=== PATIENT | female | born 1990 | race Caucasian/White ===

== ENCOUNTER 2016-03-18 13:11 | Inpatient (IN) | payer OTHER ==
[~2016-03-18] VITALS: Ht 167.6 cm; Wt 89.0 kg
[2016-03-18 13:56] LABS: URINE BLOOD (Dip) POC 1+ (NEGATIVE)
[2016-03-18] MEDS ORDERED: CLINDAMYCIN 300 MG INJ IV ONE (14:00)
[2016-03-18] MEDS ORDERED: CLINDAMYCIN 600 MG/D5W (PMX) 50 ML IVPB SCH (14:01)
[2016-03-18 14:10] LABS: BASOPHILS % 0.4 % (0.0-2.0); EOSINOPHILS % 0.5 % (0.0-7.0); HEMATOCRIT 39.4 % (37.0-47.0); HEMOGLOBIN 13.5 g/dl (12.0-16.0); LYMPHOCYTES # 1.1 10^3/ul (0.8-2.9); LYMPHOCYTES % 13.8 % (15.0-51.0); MEAN CORPUSCULAR HEMOGLOBIN 30.7 pg (29.0-33.0); MEAN CORPUSCULAR HGB CONC 34.3 g/dl (32.0-37.0); MEAN CORPUSCULAR VOLUME 89.5 fl (82.0-101.0); MEAN PLATELET VOLUME 8.8 fl (7.4-10.4); MONOCYTE # 0.6 10^3/ul (0.3-0.9); MONOCYTES % 7.6 % (0.0-11.0); NEUTROPHIL # 6.4 10^3/ul (1.6-7.5); NEUTROPHILS % 77.7 % (39.0-77.0); PLATELET COUNT 239 10^3/UL (140-440); RED CELL DISTRIBUTION WIDTH 12.6 % (11.5-14.5); UNCORRECTED WBC 8.3 10^3/ul (4.8-10.8); WHITE BLOOD COUNT 8.3 10^3/ul (4.8-10.8)
[2016-03-18 14:12] LABS: CONDITION 1
[2016-03-18 14:23] LABS: ALBUMIN 4.5 g/dl (3.3-4.9); POTASSIUM 4.3 mmol/L (3.5-5.1)
[2016-03-18 14:25] LABS: BILIRUBIN,INDIRECT 0.3 mg/dl (0-1.1); BILIRUBIN,TOTAL 0.3 mg/dl (0.2-1.3); CREATININE 0.54 mg/dl (0.44-1.00)
[2016-03-18 14:26] LABS: ALBUMIN/GLOBULIN RATIO 0.95; CALCIUM 9.5 mg/dl (8.4-10.2); TOTAL PROTEIN 9.2 g/dl (6.1-8.1)
[2016-03-18] MEDS ORDERED: CLINDAMYCIN 300 MG INJ IVPB ONE (14:30)
[2016-03-18] MEDS ORDERED: IOHEXOL 300MG/ML 150 ML BTL ONE ×2 (14:50→17:09)
[2016-03-18] MEDS ORDERED: ONDANSETRON 4 MG INJ IV STA (15:12)
[2016-03-18] MEDS ORDERED: morphine 4 MG/ML VIAL IV STA (15:12)
--- NOTE | 2016-03-18 16:17 | ERD ---
ER Documentation Chief Complaint Date/Time DATE: 03/18/16 TIME: 16:13 Chief Complaint LEFT EAR/JAW PAIN X 3 DAYS HPI This is a 26-year-old female who presents to the emergency department today with her father complaining of the left ear pain and jaw pain for the past 5 days. Patient states that 5 days ago she started with an earache and went to see her primary care doctor on Saturday who gave her a prescription for neomycin, Tylenol 3 and Keflex for an ear infection. States that she has had no improvement in symptoms or pain even with antibiotics. She went to an urgent care today who sent here to the emergency department to rule out mastoiditis. Patient denies any fevers or chills at this time. ROS All systems reviewed and are negative except as per history of present illness. Allergies Allergies: Coded Allergies: No Known Allergy (Unverified , 01/22/14) PMhx/Soc History of Surgery: No Anesthesia Reaction: No Hx Neurological Disorder: No Hx Respiratory Disorders: No Hx Cardiac Disorders: No Hx Psychiatric Problems: No Hx Miscellaneous Medical Probl: No Hx Alcohol Use: Yes (OCCASIONAL) Hx Substance Use: No Hx Tobacco Use: No Physical Exam Vitals Vital Signs Date Time Temp Pulse Resp B/P Pulse Ox O2 Delivery O2 Flow Rate FiO2 03/18/16 15:22 98.4 66 20 112/67 100 Room Air 03/18/16 13:13 98.0 81 20 124/73 99 Physical Exam Const: No acute distress Head: Atraumatic Eyes: Normal Conjunctiva ENT: Ears right TM normal. Left TM with purulent drainage and erythema on posterior aspect of ear along mastoid. Tenderness to palpation tragus with localized erythema and swelling.. Neck: Full range of motion..~ No meningismus. Resp: Clear to auscultation bilaterally Cardio: Regular rate and rhythm, no murmurs Abd: Soft, non tender, non distended. Normal bowel sounds Skin: No petechiae or rashes Neur: Awake and alert Psych: Normal Mood and Affect Result Diagram: 03/18/16 1400 03/18/16 1400 Results 24 hrs Laboratory Tests Test 03/18/16 13:56 03/18/16 14:00 Bedside Urine Blood 1+ Bedside Urine Glucose (UA) Negative Bedside Urine Ketones (LAB) Negative Bedside Urine Leukocyte Esterase (L Trace Bedside Urine Nitrite (LAB) Negative Bedside Urine Protein (LAB) 1+ Bedside Urine pH (LAB) 6.0 Alanine Aminotransferase (ALT/SGPT) 248IU/L Albumin 4.5g/dl Albumin/Globulin Ratio 0.95 Alkaline Phosphatase 141IU/L Anion Gap 18 Aspartate Amino Transf (AST/SGOT) 217IU/L Basophils # 0.010^3/ul Basophils % 0.4% Blood Urea Nitrogen 10mg/dl Calcium Level 9.5mg/dl Carbon Dioxide Level 28mmol/L Chloride Level 100mmol/L Creatinine 0.54mg/dl Direct Bilirubin 0.00mg/dl Eosinophils # 0.010^3/ul Eosinophils % 0.5% Globulin 4.70g/dl Glucose Level 97mg/dl Hematocrit 39.4% Hemoglobin 13.5g/dl Indirect Bilirubin 0.3mg/dl Lymphocytes # 1.110^3/ul Lymphocytes % 13.8% Mean Corpuscular Hemoglobin 30.7pg Mean Corpuscular Hemoglobin Concent 34.3g/dl Mean Corpuscular Volume 89.5fl Mean Platelet Volume 8.8fl Monocytes # 0.610^3/ul Monocytes % 7.6% Neutrophils # 6.410^3/ul Neutrophils % 77.7% Nucleated Red Blood Cells # 0.010^3/ul Nucleated Red Blood Cells % 0.0/100WBC Platelet Count 03008^3/UL Potassium Level 4.3mmol/L Red Blood Count 4.4010^6/ul Red Cell Distribution Width 12.6% Sodium Level 142mmol/L Total Bilirubin 0.3mg/dl Total Protein 9.2g/dl White Blood Count 8.310^3/ul Current Medications Medications (Trade) Dose Ordered Sig/Autumn Route PRN Reason Start Time Stop Time Status Last Admin Dose Admin Clindamycin Phosphate (Cleocin) 600 mg ONCE ONCE IV 03/18/16 14:00 03/18/16 14:01 Cancel Clindamycin Phosphate 600 mg 600 mg ONCE ONCE IVPB 03/18/16 14:30 03/18/16 14:31 DC Clindamycin HCl/ Dextrose (Cleocin 600 Mg/ D5W (Pmx)) 50 ml @ 50 mls/hr NOW IVPB 03/18/16 14:01 03/18/16 15:00 DC 03/18/16 14:18 Iohexol (Omnipaque 300mg/ ml) 150 ml STK-MED ONCE .ROUTE 03/18/16 14:50 03/18/16 14:51 DC Ondansetron HCl (Zofran Inj) 4 mg ONCE STAT IV 03/18/16 15:12 03/18/16 15:13 DC 03/18/16 15:17 Morphine Sulfate (morphine) 4 mg ONCE STAT IV 03/18/16 15:12 03/18/16 15:13 DC 03/18/16 15:18 IV Flush 10 ml 10 ml STK-MED ONCE .ROUTE 03/18/16 17:09 03/18/16 17:10 DC Sodium Chloride (NS) 100 ml @ ud STK-MED ONCE .ROUTE 03/18/16 17:09 03/18/16 17:10 DC Iohexol 150 ml 150 ml STK-MED ONCE .ROUTE 03/18/16 17:09 03/18/16 17:10 DC Sodium Chloride (NS) 1,000 ml @ 1,000 mls/hr Q1H ONCE IV 03/18/16 18:00 03/18/16 18:59 DC Ondansetron HCl (Zofran Inj) 4 mg BRIDGE ORDER PRN IV NAUSEA AND/OR VOMITING 03/18/16 18:30 03/18/16 19:17 DC Acetaminophen (Tylenol Tab) 650 mg ER BRIDGE PRN PO MILD PAIN/FEVER 03/18/16 18:30 03/18/16 19:17 DC Morphine Sulfate (morphine) 8 mg ONCE ONCE IV 03/18/16 18:30 03/18/16 18:31 DC 03/18/16 18:29 Diclofenac Sodium (Dyloject) 37.5 mg ONCE STAT IV 03/18/16 18:13 03/18/16 18:16 DC Acetaminophen/ Hydrocodone Bitart ([place] (10/325)) 1 tab ONCE ONCE PO 03/18/16 18:30 03/18/16 18:31 DC IV Flush (NS 3 ml) 3 ml PER PROTOCOL IV 03/18/16 19:00 Ondansetron HCl (Zofran Inj) 4 mg Q6H PRN IV NAUSEA AND/OR VOMITING 03/18/16 19:00 Acetaminophen (Tylenol Tab) 650 mg Q6H PRN PO PAIN LEVEL 1-3 OR FEVER 03/18/16 19:00 Morphine Sulfate (morphine) 2 mg Q4H PRN IV SEVERE PAIN LEVEL 7-10 03/18/16 19:00 Famotidine (Pepcid Iv) 20 mg Q12 IV 03/18/16 21:00 Enoxaparin Sodium 30 mg 30 mg DAILY SC 03/19/16 09:00 Clindamycin HCl/ Dextrose (Cleocin 300 Mg/ D5W (Pmx)) 50 ml @ 100 mls/hr Q6 IVPB 03/19/16 00:00 03/19/16 00:29 DIAGNOSTIC IMAGING REPORT Patient: ARTEM GASPAR : 1990 Age: 26 Sex: F MR #: [id number] DOS: 03/18/16 0000 Ordering MD: RM OTT PA-C Location: [facility] Room/Bed: PROCEDURE: CT head without Contrast CLINICAL INDICATION: Left ear pain, swelling, draining TECHNIQUE: Transaxial images were made through the head on a multi-slice scanner without intravenous contrast. Coronal and sagittal images were subsequently reformatted. One or more of the following dose reduction techniques were used: - Automated exposure control. - Adjustment of the mA and/or kV according to patient size. - Use of iterative reconstruction technique. Radiation dose: CTDIvol = 44.77 mGy; DLP = 720.23 mGy-cm. COMPARISON: None FINDINGS: The calvarium appears intact. There is relative soft tissue swelling about the left external ear with soft tissue density seen in the region of the external auditory canal. There is soft tissue density in the middle ear cavity on the left compatible with otitis media. The there is soft tissue thickening involving multiple left mastoid air cells without osseous destruction. There is partial opacification of a posterior left ethmoid air cell. The ventricles are normal in size and there is no midline shift. No intracranial bleed, mass, or extra-axial fluid collection is identified. There is good alvarez-white matter differentiation. IMPRESSION: 1. There is relatively increased soft tissue density seen about the left external year compatible with inflammation. There is soft tissue density obscuring the left external auditory canal and there is some increased soft tissue density in the left middle ear cavity compatible with otitis media. No discrete abscess cavity is evident. 2. There is a minimal inflammatory change involving left mastoid air cells compatible with early left mastoiditis without osseous destruction identified. 3. Otherwise, Physician Rene Date Time Electronically viewed and signed by Physician Rene on 03/18/2016 16:18 RH/ CC: RM OTT PA-C DIAGNOSTIC IMAGING REPORT Patient: ARTEM GASPAR : 1990 Age: 26 Sex: F MR #: [id number] DOS: 03/18/16 0000 Ordering MD: RM OTT PA-C Location: [facility] Room/Bed: PROCEDURE: CT Maxillofacial with Contrast CLINICAL INDICATION: Left year pain swelling and draining TECHNIQUE: Transaxial images were obtained through the maxillofacial region on a multi-slice scanner following intravenous contrast administration. Sagittal and coronal re-formations were subsequently reconstructed. One or more of the following dose reduction techniques were used: - Automated exposure control. - Adjustment of the mA and/or kV according to patient size. - Use of iterative reconstruction technique. Radiation dose: CTDIvol = 53.91 mGy; DLP = 1132.14 mGy-cm. COMPARISON: No prior studies are available for comparison. FINDINGS: Osseous structures: Appear intact with no fracture or destructive process evident. Paranasal sinuses: There is partial opacification of a left posterior ethmoid air cell. The sphenoid, maxillary, right ethmoid and frontal sinuses are well- aerated. Mastoid air cells: There is normal pneumatization of the right mastoid air cells. There is some fluid within left superior mastoid air cells and there is partial opacification of the left middle ear cavity compatible with otitis media. The air column within the left external auditory canal is obliterated and there is soft tissue swelling about the left external ear. Eachscutum appears normal. Temporomandibular joints: Appear unremarkable. Orbits: The ocular globes, optic nerves, and intraorbital contents appear unremarkable. Soft tissues: Two 7.3 cm in short diameter left jugular digastric nodes are evident. No abscess is identified. IMPRESSION: 1. Soft tissue swelling is seen about the left external year with no abscess identified. 2. Inflammatory change obliterates the air column within the left external auditory canal. 3. There is partial opacification of the left middle ear cavity compatible with otitis media. 4. Fluid is seen within the left superior mastoid air cells compatible with early acute mastoiditis. No osseous destruction is identified. 5. Inflammatory change involving a left posterior ethmoid air cell. 6. Two 7.3 mm in short diameter left jugulodigastric nodes are evident. Physician Rene Date Time Electronically viewed and signed by Physician Rene on 03/18/2016 16:30 RH/ CC: RM OTT PA-C Procedures/MDM This is a 26-year-old female who presents the emergency department today complaining of left ear and jaw pain for the past 5 days. On physical exam patient did have purulent drainage from her left ear and she had some edema and erythema around her tragus as well as erythema on the posterior aspect of her ear along her mastoid. I felt that obtaining laboratory work and imaging was appropriate for the patient given her symptoms and physical exam. Laboratory work shows no elevated white blood cell count. She is not anemic. Platelets are within normal limits. Electrolytes are within normal limits. Creatinine is normal limits. Glucose is within normal limits. Liver function is elevated UA shows trace leukocyte esterase Urine test is negative Head CT with contrast shows relatively increased soft tissue density seen about the left external ear compatible with inflammation. There is soft tissue density obscuring the left external auditory canal and there is some increased soft tissue density in the left middle ear cavity compatible with otitis media. There is no discrete abscess cavity evident. There is minimal inflammatory change involving the left mastoid air cells compatible with early left mastoiditis without osseous destruction identified. Facial bones with contrast shows soft tissue swelling seen about the left external ear with no abscess identified. There is inflammatory change A air column with the left external auditory canal. There is partial opacification of the left middle ear cavity compatible with otitis media. Fluid is seen within the left superior mastoid air cells compatible with early acute mastoiditis. There is no osseous distress may defy. There is inflammatory change involving a left posterior ethmoid air cell. There are 27.3 mm insert diameter left jugulodigastric nodes are evident. I discussed the patient with Dr. Raines and the patient was given 600 mg IV clindamycin as well as morphine for pain. She was also given Zofran. Once CT results were obtained I discussed the patient with Dr. Rogers and there was some discussion as to whether the patient should receive outpatient management versus inpatient management. I did discuss it with the patient and the patient agreed to be admitted for further evaluation and continued IV antibiotic especially considering that her pain was only controlled with morphine here in the emergency department. Patient was also having some difficulty opening her mouth and I had some concern for patient tolerating by mouth intake Any further workup or orders will be placed by either Dr. Guerrero the admitting physician. Departure Diagnosis: Primary Impression: Mastoiditis of left side Condition: RM Brannon PA-C Mar 18, 2016 16:17
--- NOTE | 2016-03-18 16:19 | RADRPT ---
PROCEDURE: CT head without Contrast CLINICAL INDICATION: Left ear pain, swelling, draining TECHNIQUE: Transaxial images were made through the head on a multi-slice scanner without intraveno us contrast. Coronal and sagittal images were subsequently reformatted. One or more of the following dose reduction techniques were used: - Automated exposure control. - Adjustment of the mA and/or kV according to patient size. - Use of iterative reconstruction technique. Radiation dose: CTDIvol = 44.77 mGy; DLP = 720.23 mGy-cm. COMPARISON: None FINDINGS: The calvarium appears intact. There is relative soft tissue swelling about the left external ear wi th soft tissue density seen in the region of the external auditory canal. There is soft tissue dens ity in the middle ear cavity on the left compatible with otitis media. The there is soft tissue thi ckening involving multiple left mastoid air cells without osseous destruction. There is partial opa cification of a posterior left ethmoid air cell. The ventricles are normal in size and there is no midline shift. No intracranial bleed, mass, or extra-axial fluid collection is identified. There is good alvarez-white matter differentiation. IMPRESSION: 1. There is relatively increased soft tissue density seen about the left external year compatible w ith inflammation. There is soft tissue density obscuring the left external auditory canal and there is some increased soft tissue density in the left middle ear cavity compatible with otitis media. N o discrete abscess cavity is evident. 2. There is a minimal inflammatory change involving left mastoid air cells compatible with early le ft mastoiditis without osseous destruction identified. 3. Otherwise, Physician Rene Date Time Electronically viewed and signed by Physician Rene on 03/18/2016 16:18 /
--- NOTE | 2016-03-18 16:31 | RADRPT ---
PROCEDURE: CT Maxillofacial with Contrast CLINICAL INDICATION: Left year pain swelling and draining TECHNIQUE: Transaxial images were obtained through the maxillofacial region on a multi-slice scan er following intravenous contrast administration. Sagittal and coronal re-formations were subsequent ly reconstructed. One or more of the following dose reduction techniques were used: - Automated exposure control. - Adjustment of the mA and/or kV according to patient size. - Use of iterative reconstruction technique. Radiation dose: CTDIvol = 53.91 mGy; DLP = 1132.14 mGy-cm. COMPARISON: No prior studies are available for comparison. FINDINGS: Osseous structures: Appear intact with no fracture or destructive process evident. Paranasal sinuses: There is partial opacification of a left posterior ethmoid air cell. The sphenoi d, maxillary, right ethmoid and frontal sinuses are well-aerated. Mastoid air cells: There is normal pneumatization of the right mastoid air cells. There is some flu id within left superior mastoid air cells and there is partial opacification of the left middle ear cavity compatible with otitis media. The air column within the left external auditory canal is obli terated and there is soft tissue swelling about the left external ear. Eachscutum appears normal. Temporomandibular joints: Appear unremarkable. Orbits: The ocular globes, optic nerves, and intraorbital contents appear unremarkable. Soft tissues: Two 7.3 cm in short diameter left jugular digastric nodes are evident. No abscess is identified. IMPRESSION: 1. Soft tissue swelling is seen about the left external year with no abscess identified. 2. Inflammatory change obliterates the air column within the left external auditory canal. 3. There is partial opacification of the left middle ear cavity compatible with otitis media. 4. Fluid is seen within the left superior mastoid air cells compatible with early acute mastoiditis . No osseous destruction is identified. 5. Inflammatory change involving a left posterior ethmoid air cell. 6. Two 7.3 mm in short diameter left jugulodigastric nodes are evident. Physician Rene Date Time Electronically viewed and signed by Physician Rene on 03/18/2016 16:30 /
[2016-03-18] MEDS ORDERED: SOD CHLORIDE 0.9% 100 ML ONE (17:09)
[2016-03-18] MEDS ORDERED: SOD CHLORIDE 0.9% 1,000 ML IV ONE (18:00)
[2016-03-18] MEDS ORDERED: DICLOFENAC SODIUM 37.5 MG/ML VIAL IV STA (18:13)
[2016-03-18] MEDS ORDERED: ONDANSETRON 4 MG INJ IV PRN ×2 (18:30→19:00)
[2016-03-18] MEDS ORDERED: morphine 10 MG INJ IV ONE (18:30)
[2016-03-18] MEDS ORDERED: HYDROCODONE/APAP (10/325) TAB PO ONE (18:30)
[2016-03-18] MEDS ORDERED: ACETAMINOPHEN 325 MG TAB PO PRN (18:30)
[2016-03-18] MEDS ORDERED: NACL 0.9% 3 ML SYG IV SCH (19:00)
[2016-03-18 20:02] VITALS: TEMP 98.6
[2016-03-18 20:12] VITALS: Ht 167.6 cm; Wt 89.0 kg
[2016-03-18 20:38] VITALS: BP 117/57; RESP 18
[2016-03-18] MEDS: FAMOTIDINE 20 MG INJ IV SCH (20:45)
[2016-03-18] MEDS: morphine 2 MG INJ IV PRN (23:37)
[2016-03-19] MEDS ORDERED: CLINDAMYCIN 300 MG/D5W (PMX) 50 ML IVPB SCH
[2016-03-19] MEDS: morphine 2 MG INJ IV PRN (01:52)
[2016-03-19] MEDS: ACETAMINOPHEN 325 MG TAB PO PRN ×3 (03:03→18:28)
[2016-03-19] MEDS ORDERED: ACET1TAB40 PO (03:24)
[2016-03-19] MEDS ORDERED: CEPH500C PO (03:24)
[2016-03-19] MEDS ORDERED: NPH10OT LEFT EAR (03:24)
[2016-03-19 05:36] LABS: ALBUMIN 4.1 g/dl (3.3-4.9); POTASSIUM 3.9 mmol/L (3.5-5.1)
[2016-03-19 05:38] LABS: ALBUMIN/GLOBULIN RATIO 1.07; BILIRUBIN,INDIRECT 0.2 mg/dl (0-1.1); BILIRUBIN,TOTAL 0.2 mg/dl (0.2-1.3); CREATININE 0.49 mg/dl (0.44-1.00); TOTAL PROTEIN 7.9 g/dl (6.1-8.1)
[2016-03-19 05:39] LABS: CALCIUM 8.9 mg/dl (8.4-10.2)
[2016-03-19 05:40] LABS: BASOPHILS % 0.5 % (0.0-2.0); EOSINOPHILS % 0.3 % (0.0-7.0); HEMOGLOBIN 12.2 g/dl (12.0-16.0); LYMPHOCYTES # 1.6 10^3/ul (0.8-2.9); LYMPHOCYTES % 17.8 % (15.0-51.0); MEAN CORPUSCULAR HEMOGLOBIN 31.2 pg (29.0-33.0); MEAN CORPUSCULAR HGB CONC 34.7 g/dl (32.0-37.0); MEAN CORPUSCULAR VOLUME 89.7 fl (82.0-101.0); MEAN PLATELET VOLUME 8.8 fl (7.4-10.4); MONOCYTE # 0.6 10^3/ul (0.3-0.9); MONOCYTES % 6.9 % (0.0-11.0); NEUTROPHIL # 6.6 10^3/ul (1.6-7.5); NEUTROPHILS % 74.5 % (39.0-77.0); PLATELET COUNT 245 10^3/UL (140-440); RED CELL DISTRIBUTION WIDTH 12.4 % (11.5-14.5); UNCORRECTED WBC 8.8 10^3/ul (4.8-10.8); WHITE BLOOD COUNT 8.8 10^3/ul (4.8-10.8)
[2016-03-19 05:52] LABS: CONDITION 1
[2016-03-19] MEDS ORDERED: morphine 4 MG/ML VIAL IV PRN (06:30)
[2016-03-19 07:42] VITALS: BP 119/60; RESP 16
[2016-03-19] MEDS: CLINDAMYCIN 300 MG/D5W (PMX) 50 ML IVPB SCH ×2 (08:02→12:33)
[2016-03-19] MEDS: FAMOTIDINE 20 MG INJ IV SCH ×2 (08:46→20:04)
[2016-03-19] MEDS: NEOMYC/POLYMYX/HC 10 ML OTIC SUSP LEFT EAR SCH ×3 (08:46→20:04)
[2016-03-19] MEDS: ENOXAPARIN 30 MG/0.3 ML SYG SC SCH (08:50)
[2016-03-19] MEDS ORDERED: NEOMYC/POLYMYX/HC 10 ML OTIC SUSP LEFT EAR SCH (09:00)
--- NOTE | 2016-03-19 14:01 | HP ---
DATE OF ADMISSION: 03/18/2016 CHIEF COMPLAINT: Left ear and left jaw pain, started on Saturday. HISTORY OF PRESENT ILLNESS: The patient is a 26-year-old female who presented to the emergency room with complaints of left ear pain and jaw pain for last 5 days. The patient stated that she started with earache on Saturday and patient went to see her primary doctor on Saturday and was prescribed n eomycin, Tylenol, and Keflex for ear infection. The patient stated that she did not have any improv ement in symptoms. The patient went to urgent care today and was sent to the emergency department. The patient stated that she had a fever at the doctor's office on Saturday, 101.0, then she stated th at she was not taking his temperature at home. The patient underwent a brain CT and face CT, and wa s diagnosed with mastoiditis of the left side. The patient also had some purulent drainage from the left ear. The patient was given morphine for pain and Zofran for nausea. The patient also stated that she has been having nausea since Saturday. The patient was started on IV clindamycin and admitte d for further evaluation and management to medical/surgical floor. PAST MEDICAL HISTORY: The patient denied having any medical problems. PAST SURGICAL HISTORY: Status post cholecystectomy [place] [address] Simmons. FAMILY HISTORY: Noncontributory. SOCIAL HISTORY: The patient lives at home with her family, the patient denies any tobacco use, naya es any illicit drug use. Denies any alcohol use. ALLERGIES: NO KNOWN ALLERGIES. MEDICATIONS: The patient stated she does not take any routine medications. For last 2 days was radha ing neomycin, Tylenol, and Keflex prescribed by PMD. REVIEW OF SYSTEMS: The patient denied any chest pain, denies any shortness of breath. The patient denies any vomiting, denies any diarrhea. Denies leg swelling. A 12-point review of systems is neg ative unless what is mentioned in the HPI. PHYSICAL EXAMINATION: GENERAL: Well-developed, well-nourished female currently awake, alert. VITAL SIGNS: Temperature is 97.8, pulse is 78, blood pressure 116/60, respiratory rate 16, oxygen s aturation is 97% on room air. HEENT: Head is atraumatic, normocephalic. The patient had left auricular swelling and tenderness a nd left jaw tenderness, dried purulent discharge from left ear. Palpable left to left jugular digas tric lymph nodes. NECK: Supple. No cervical lymphadenopathy, no thyromegaly. CHEST: Lungs clear bilaterally. There is no rhonchi, wheezes, or rales noted. CARDIOVASCULAR: Normal S1, S2. No murmurs, gallops, clicks, rubs noted. ABDOMEN: Protuberant, soft, nondistended, nontender. Bowel sounds present. There is no guarding. EXTREMITIES: There is no edema, clubbing, cyanosis. Pulses equal bilaterally 2+. SKIN: There is no rash, petechiae noted. NEUROLOGICAL: The patient is awake, alert, and oriented x4. No focal deficits noted. MUSCULOSKELETAL: Motor strength 5/5 in all extremities. The patient has difficulty in chewing and pain when opening, actually has left jaw tenderness. LABORATORY DATA: On admission, CBC: White blood cells 8.3, hemoglobin 13.5, hematocrit 39.4, plate lets 239. Chemistry: Sodium is 142, potassium 4.3, chloride 100, carbon dioxide 28, anion gap 18, BUN is 10, creatinine 0.54, glucose 97. AST is 217, ALT is 248, alkaline phosphatase 141. IMAGING: Face CT with: 1. Soft tissue swelling is seen about the left external ear with no abscess identified. 2. Inflammatory change obliterates the ear, within the left external auditory canal. 3. There is partial opacification of left middle ear cavity, compatible with otitis media. 4. Fluid is seen within the left superior mastoid air cells compatible with early acute mastoiditis , no osseous destruction is identified. 5. Inflammatory changes involving the left posterior ethmoid air cells. 6. Two 7.3 mm in short diameter left jugular gastric nodes are evident. ASSESSMENT AND PLAN 1. Mastoiditis on the left side. 2. Otitis media, failed outpatient management. I am going to continue the patient on IV clindamycin and continue morphine p.r.n. for pain and Zofra n p.r.n. for nausea. We will ask Dr. Santos to see patient in infectious disease consultation. Victor Hugo l start full liquid mechanical soft diet, advance as patient tolerates. The patient has difficulty chewing due to mastoid tenderness. Will continue Lovenox for deep venous thrombosis prophylaxis and Pepcid for peptic ulcer disease prophylaxis. Further recommendations based on clinical course. Pl an of care discussed with Dr. Menendez. Dictated By: RADHA ACOSTA LIME KILN TENDER for MAGI MENENDEZ MD SR/NTS Conf#: [id number] DID#: [id number]
--- NOTE | 2016-03-19 17:48 | CONS ---
Date/Time of Note Date/Time of Note DATE: 03/19/16 TIME: 17:45 Assessment/Plan Assessment/Plan Additional Assessment/Plan mastoidits R: Vanco mrsa and hiv screen f/u cxs Consultation Date/Type/Reason Admit Date/Time Mar 18, 2016 at 18:10 Reason for Consultation abx recs mastoiditis 24 HR Interval Summary Free Text/Dictation 26 yo female without signiciant pmh admitted with worsening left otitis media and imaging showing mastoiditis. cxs pending. Exam/Review of Systems Vital Signs Vitals Vital Signs Date Time Temp Pulse Resp B/P Pulse Ox O2 Delivery O2 Flow Rate FiO2 03/19/16 07:42 97.8 78 16 119/60 97 03/18/16 20:02 Room Air Intake and Output 03/18/16 03/18/16 03/19/16 15:00 23:00 07:00 Intake Total 490 ml Balance 490 ml Exam Constitutional: alert, oriented, well developed Eyes: EOMI, PERRL, nl conjunctiva, nl lids, nl sclera Respiratory: clear to auscultation, normal air movement Cardiovascular: nl pulses, regular rate and rhythm Gastrointestinal: nl liver, spleen, non-tender, soft Results Result Diagram: 03/19/16 0420 03/19/16 0420 Results 24 hrs Laboratory Tests Test 03/19/16 04:20 Alanine Aminotransferase (ALT/SGPT) 175 H Albumin 4.1 Albumin/Globulin Ratio 1.07 Alkaline Phosphatase 138 H Anion Gap 18 H Aspartate Amino Transf (AST/SGOT) 91 H Basophils # 0.0 Basophils % 0.5 Blood Urea Nitrogen 7 Calcium Level 8.9 Carbon Dioxide Level 26 Chloride Level 99 Creatinine 0.49 Direct Bilirubin 0.00 Eosinophils # 0.0 Eosinophils % 0.3 Globulin 3.80 H Glucose Level 100 Hematocrit 35.0 L Hemoglobin 12.2 Indirect Bilirubin 0.2 Lymphocytes # 1.6 Lymphocytes % 17.8 Mean Corpuscular Hemoglobin 31.2 Mean Corpuscular Hemoglobin Concent 34.7 Mean Corpuscular Volume 89.7 Mean Platelet Volume 8.8 Monocytes # 0.6 Monocytes % 6.9 Neutrophils # 6.6 Neutrophils % 74.5 Nucleated Red Blood Cells # 0.0 Nucleated Red Blood Cells % 0.0 Platelet Count 245 Potassium Level 3.9 Red Blood Count 3.90 L Red Cell Distribution Width 12.4 Sodium Level 139 Total Bilirubin 0.2 Total Protein 7.9 # White Blood Count 8.8 Medications Medications Current Medications Ondansetron HCl (Zofran Inj) 4 mg Q6H PRN IV NAUSEA AND/OR VOMITING Last administered on 03/18/16 23:37; Admin Dose 4 MG; Start 03/18/16 at 19:00 Acetaminophen (Tylenol Tab) 650 mg Q6H PRN PO PAIN LEVEL 1-3 OR FEVER Last administered on 03/19/16 11:59; Admin Dose 650 MG; Start 03/18/16 at 19:00 Morphine Sulfate (morphine) 2 mg Q4H PRN IV SEVERE PAIN LEVEL 7-10 Last administered on 03/19/16 01:52; Admin Dose 2 MG; Start 03/18/16 at 19:00 Famotidine (Pepcid Iv) 20 mg Q12 IV Last administered on 03/19/16 08:46; Admin Dose 20 MG; Start 03/18/16 at 21:00 Enoxaparin Sodium 30 mg 30 mg DAILY SC Last administered on 03/19/16 08:50; Admin Dose 30 MG; Start 03/19/16 at 09:00 Clindamycin HCl/ Dextrose (Cleocin 300 Mg/ D5W (Pmx)) 50 ml @ 100 mls/hr Q6 IVPB Last administered on 03/19/16 12:33; Admin Dose 100 MLS/HR; Start at 06:30 Morphine Sulfate (morphine) 4 mg Q4H PRN IV PAIN; Start 03/19/16 at 06:30 Neomycin/ Polymyxin/ Hydrocortisone (Cortisporin Otic Susp) 4 drop TID LEFT EAR Last administered on 03/19/16 12:33; Admin Dose 4 DROP; Start 03/19/16 at 09: 00 ANEESH SCHULTE MD Mar 19, 2016 17:48
[2016-03-19] MEDS ORDERED: VANCOMYCIN IV PER PHARMACY XX SCH (18:00)
[2016-03-19 19:46] VITALS: BP 114/62; RESP 19
[2016-03-19 20:00] VITALS: BP 114/62; PULSE 78; RESP 19
[2016-03-19] MEDS ORDERED: VANCOMYCIN 1.75 GM in NS 500 ML IVPB SCH (20:00)
[2016-03-19] MEDS ORDERED: KETOROLAC 30 MG INJ IV PRN (20:00)
[2016-03-20 06:25] LABS: CREATININE 0.54 mg/dl (0.44-1.00)
[2016-03-20 06:26] LABS: CALCIUM 9.3 mg/dl (8.4-10.2)
[2016-03-20 06:44] LABS: BASOPHILS % 0.7 % (0.0-2.0); EOSINOPHILS # 0.1 10^3/ul (0.0-0.5); EOSINOPHILS % 1.2 % (0.0-7.0); HEMOGLOBIN 12.3 g/dl (12.0-16.0); LYMPHOCYTES # 1.7 10^3/ul (0.8-2.9); LYMPHOCYTES % 33.6 % (15.0-51.0); MEAN CORPUSCULAR HEMOGLOBIN 31.6 pg (29.0-33.0); MEAN CORPUSCULAR HGB CONC 35.2 g/dl (32.0-37.0); MEAN CORPUSCULAR VOLUME 89.7 fl (82.0-101.0); MONOCYTE # 0.4 10^3/ul (0.3-0.9); NEUTROPHIL # 2.9 10^3/ul (1.6-7.5); NEUTROPHILS % 56.5 % (39.0-77.0); PLATELET COUNT 259 10^3/UL (140-440); RED CELL DISTRIBUTION WIDTH 12.2 % (11.5-14.5); UNCORRECTED WBC 5.1 10^3/ul (4.8-10.8); WHITE BLOOD COUNT 5.1 10^3/ul (4.8-10.8)
[2016-03-20 07:10] LABS: CONDITION 1
[2016-03-20 08:06] VITALS: BP 107/53; RESP 16
[2016-03-20] MEDS: VANCOMYCIN 1 GM in NS 250 ML IVPB SCH ×2 (08:24→15:54)
[2016-03-20] MEDS: NEOMYC/POLYMYX/HC 10 ML OTIC SUSP LEFT EAR SCH ×3 (08:24→21:20)
[2016-03-20] MEDS: ENOXAPARIN 30 MG/0.3 ML SYG SC SCH (08:25)
[2016-03-20] MEDS: FAMOTIDINE 20 MG INJ IV SCH ×2 (08:25→21:26)
[2016-03-20] MEDS ORDERED: VANCOMYCIN 1 GM in NS 250 ML IVPB SCH (10:00)
--- NOTE | 2016-03-20 11:26 | CONS ---
Date/Time of Note Date/Time of Note DATE: 03/20/16 TIME: 11:18 Assessment/Plan Assessment/Plan Chief Complaint/Hosp Course Assessment/Impression: - acute mastoidits - left otitis media - transaminitis - improving Recommendations: - Continue Vanco (03/19/16-) - Add Levaquin for GNR infection - F/u Left ear cultures (prelim growing scant GNR) - F/u mrsa screen (pending) and hiv screen (negative) - Mgmt d/w nursing staff - Above d/w Dr. Santos Problems: Consultation Date/Type/Reason Admit Date/Time Mar 18, 2016 at 18:10 Initial Consult Date 03/19/2016 Type of Consultation: Infectious Disease Reason for Consultation mastoiditis and otitis media Referring Provider: RADHA ACOSTA 24 HR Interval Summary Free Text/Dictation States left ear and jaw pain has slightly improved but still cannot hear anything from left ear. Had similar left ear infection more than six months ago that resolved with oral abx but had residual drainage. Tolerated soft food earlier with mild nausea but no vomiting. Denies abd pain, diarrhea, dysuria, SOB. Pt asking if she can shower. Exam/Review of Systems Vital Signs Vitals Vital Signs Date Time Temp Pulse Resp B/P Pulse Ox O2 Delivery O2 Flow Rate FiO2 03/20/16 08:06 98.8 59 16 107/53 97 03/19/16 20:00 Room Air Intake and Output 03/19/16 03/19/16 03/20/16 15:00 23:00 07:00 Intake Total 100 ml 720 ml 1100 ml Balance 100 ml 720 ml 1100 ml Exam Constitutional: alert, oriented, well developed Head: atraumatic, normocephalic Eyes: PERRL, nl sclera ENMT: mucosa pink and moist, nl lips & teeth, other (Left tragus TTP), tympanic membranes (Left TM with purulent drainage completely covering opening of ear canal) Neck: supple, No jvd Respiratory: clear to auscultation, normal air movement Cardiovascular: nl pulses, regular rate and rhythm Gastrointestinal: bowel sounds, non-tender, soft Musculoskeletal: nl extremities to inspection Extremities: normal pulses, No edema Neurological: nl mental status, nl strength Skin: nl turgor Results Result Diagram: 03/20/16 0507 03/20/16 0507 Results 24 hrs 03/19/2016 Rapid influenza screen INFLUENZA A & B BY EIA Final INFLU A&B BY EIA INFLUENZA A NEGATIVE (Ref Range Neg) INFLUENZA B NEGATIVE (Ref Range Neg) 03/19/2016 MRSA screen MRSA SCREEN Preliminary Screening in process 03/19/2016 Left Ear culture EAR CULTURE Preliminary Organism 1 GRAM NEGATIVE AFIA QUANTITY SCANT GROWTH Laboratory Tests Test 03/19/16 17:55 03/20/16 05:07 HIV (1&2) Antibody NEGATIVE Anion Gap 16 Basophils # 0.0 Basophils % 0.7 Blood Urea Nitrogen 8 Calcium Level 9.3 Carbon Dioxide Level 28 Chloride Level 103 Creatinine 0.54 Eosinophils # 0.1 Eosinophils % 1.2 Glucose Level 88 Hematocrit 35.0 L Hemoglobin 12.3 Lymphocytes # 1.7 Lymphocytes % 33.6 Mean Corpuscular Hemoglobin 31.6 Mean Corpuscular Hemoglobin Concent 35.2 Mean Corpuscular Volume 89.7 Mean Platelet Volume 9.0 Monocytes # 0.4 Monocytes % 8.0 Neutrophils # 2.9 Neutrophils % 56.5 Nucleated Red Blood Cells # 0.0 Nucleated Red Blood Cells % 0.0 Platelet Count 259 Potassium Level 4.0 Red Blood Count 3.90 L Red Cell Distribution Width 12.2 Sodium Level 143 White Blood Count 5.1 # Medications Medications Current Medications Ondansetron HCl (Zofran Inj) 4 mg Q6H PRN IV NAUSEA AND/OR VOMITING Last administered on 03/18/16 23:37; Admin Dose 4 MG; Start 03/18/16 at 19:00 Acetaminophen (Tylenol Tab) 650 mg Q6H PRN PO PAIN LEVEL 1-3 OR FEVER Last administered on 03/19/16 18:28; Admin Dose 650 MG; Start 03/18/16 at 19:00 Morphine Sulfate (morphine) 2 mg Q4H PRN IV SEVERE PAIN LEVEL 7-10 Last administered on 03/19/16 01:52; Admin Dose 2 MG; Start 03/18/16 at 19:00 Famotidine (Pepcid Iv) 20 mg Q12 IV Last administered on 03/20/16 08:25; Admin Dose 20 MG; Start 03/18/16 at 21:00 Enoxaparin Sodium (Lovenox) 30 mg DAILY SC Last administered on 03/20/16 08:25 ; Admin Dose 30 MG; Start 03/19/16 at 09:00 Morphine Sulfate (morphine) 4 mg Q4H PRN IV PAIN; Start 03/19/16 at 06:30 Neomycin/ Polymyxin/ Hydrocortisone 4 drop 4 drop TID LEFT EAR Last administered on 03/20/16 08:24; Admin Dose 4 DROP; Start 03/19/16 at 09:00 Vancomycin HCl (Vancocin) 250 ml @ 125 mls/hr Q8H IVPB Last administered on 08:24; Admin Dose 125 MLS/HR; Start 03/20/16 at 08:00 Ketorolac Tromethamine (Toradol) 30 mg Q6H PRN IV PAIN Last administered on 23:31; Admin Dose 30 MG; Start 03/19/16 at 20:00; Stop 03/22/16 at 19:59 Miscellaneous Information (*Rx Drug Level Order Reminder*) VANCO TROUGH @ 2, 300 ON... ONCE ONCE XX ; Start 03/20/16 at 23:00; Stop 03/20/16 at 23:[address] Brain 03/18/16: 1. There is relatively increased soft tissue density seen about the left external year compatible with inflammation. There is soft tissue density obscuring the left external auditory canal and there is some increased soft tissue density in the left middle ear cavity compatible with otitis media. No discrete abscess cavity is evident. 2. There is a minimal inflammatory change involving left mastoid air cells compatible with early left mastoiditis without osseous destruction identified. 3. Otherwise, CT Face 03/18/16: 1. Soft tissue swelling is seen about the left external ear with no abscess identified. 2. Inflammatory change obliterates the air column within the left external auditory canal. 3. There is partial opacification of the left middle ear cavity compatible with otitis media. 4. Fluid is seen within the left superior mastoid air cells compatible with early acute mastoiditis. No osseous destruction is identified. 5. Inflammatory change involving a left posterior ethmoid air cell. 6. Two 7.3 mm in short diameter left jugulodigastric nodes are evident. BEATA ALEXANDRA NP Mar 20, 2016 11:26
[2016-03-20] MEDS ORDERED: DIPHENHYDRAMINE 25 MG CAP PO PRN (12:00)
[2016-03-20] MEDS: ACETAMINOPHEN 325 MG TAB PO PRN (14:32)
[2016-03-20] MEDS: LEVOFLOXACIN 750MG/D5W (PMX) 150 ML IVPB SCH (14:32)
--- NOTE | 2016-03-20 17:01 | PN ---
Date/Time of Note Date/Time of Note DATE: 03/20/16 TIME: 16:57 Assessment/Plan VTE Prophylaxis VTE Prophylaxis Intervention: SCD's Lines/Catheters IV Catheter Type (from [facility]): Saline Lock Assessment/Plan Chief Complaint/Hosp Course ASSESSMENT AND PLAN 1. Mastoiditis on the left side. Continue vancomycin and Levaquin. Dr. Santos is following an infection disease consultation. 2. Otitis media, failed outpatient management. Further recommendations based on clinical course. Plan of care discussed with Dr. Braswell. Problems: Subjective 24 Hr Interval Summary Free Text/Dictation Patient stated states that she feels better, decrease in jar tenderness, stated that she will be able to eat regular diet. Exam/Review of Systems Vital Signs Vitals Vital Signs Date Time Temp Pulse Resp B/P Pulse Ox O2 Delivery O2 Flow Rate FiO2 03/20/16 08:06 98.8 59 16 107/53 97 03/19/16 20:00 Room Air Intake and Output 03/19/16 03/19/16 03/20/16 15:00 23:00 07:00 Intake Total 100 ml 720 ml 1100 ml Balance 100 ml 720 ml 1100 ml Exam GENERAL: Well-developed, well-nourished female currently awake, alert. HEENT: Head is atraumatic, normocephalic. The patient had left auricular swelling and tenderness and left jaw tenderness, dried purulent discharge from left ear. Palpable left to left jugular digastric lymph nodes. NECK: Supple. CHEST: Lungs clear bilaterally. There is no rhonchi, wheezes, or rales noted. CARDIOVASCULAR: Normal S1, S2. No murmurs, gallops, clicks, rubs noted. ABDOMEN: Protuberant, soft, nondistended, nontender. Bowel sounds present. There is no guarding. EXTREMITIES: There is no edema, clubbing, cyanosis. Pulses equal bilaterally 2 +. SKIN: There is no rash, petechiae noted. NEUROLOGICAL: The patient is awake, alert, and oriented x4. Results Result Diagram: 03/20/16 0507 03/20/16 0507 Results 24 hrs Laboratory Tests Test 03/19/16 17:55 03/20/16 05:07 HIV (1&2) Antibody NEGATIVE Anion Gap 16 Basophils # 0.0 Basophils % 0.7 Blood Urea Nitrogen 8 Calcium Level 9.3 Carbon Dioxide Level 28 Chloride Level 103 Creatinine 0.54 Eosinophils # 0.1 Eosinophils % 1.2 Glucose Level 88 Hematocrit 35.0 L Hemoglobin 12.3 Lymphocytes # 1.7 Lymphocytes % 33.6 Mean Corpuscular Hemoglobin 31.6 Mean Corpuscular Hemoglobin Concent 35.2 Mean Corpuscular Volume 89.7 Mean Platelet Volume 9.0 Monocytes # 0.4 Monocytes % 8.0 Neutrophils # 2.9 Neutrophils % 56.5 Nucleated Red Blood Cells # 0.0 Nucleated Red Blood Cells % 0.0 Platelet Count 259 Potassium Level 4.0 Red Blood Count 3.90 L Red Cell Distribution Width 12.2 Sodium Level 143 White Blood Count 5.1 # Medications Medications Current Medications Ondansetron HCl (Zofran Inj) 4 mg Q6H PRN IV NAUSEA AND/OR VOMITING Last administered on 03/18/16 23:37; Admin Dose 4 MG; Start 03/18/16 at 19:00 Acetaminophen (Tylenol Tab) 650 mg Q6H PRN PO PAIN LEVEL 1-3 OR FEVER Last administered on 03/20/16 14:32; Admin Dose 650 MG; Start 03/18/16 at 19:00 Morphine Sulfate (morphine) 2 mg Q4H PRN IV SEVERE PAIN LEVEL 7-10 Last administered on 03/19/16 01:52; Admin Dose 2 MG; Start 03/18/16 at 19:00 Famotidine (Pepcid Iv) 20 mg Q12 IV Last administered on 03/20/16 08:25; Admin Dose 20 MG; Start 03/18/16 at 21:00 Enoxaparin Sodium (Lovenox) 30 mg DAILY SC Last administered on 03/20/16 08:25 ; Admin Dose 30 MG; Start 03/19/16 at 09:00 Morphine Sulfate (morphine) 4 mg Q4H PRN IV PAIN; Start 03/19/16 at 06:30 Neomycin/ Polymyxin/ Hydrocortisone 4 drop 4 drop TID LEFT EAR Last administered on 03/20/16 14:32; Admin Dose 4 DROP; Start 03/19/16 at 09:00 Vancomycin HCl (Vancocin) 250 ml @ 125 mls/hr Q8H IVPB Last administered on 15:54; Admin Dose 125 MLS/HR; Start 03/20/16 at 08:00 Ketorolac Tromethamine (Toradol) 30 mg Q6H PRN IV PAIN Last administered on 23:31; Admin Dose 30 MG; Start 03/19/16 at 20:00; Stop 03/22/16 at 19:59 Miscellaneous Information (*Rx Drug Level Order Reminder*) VANCO TROUGH @ 2, 300 ON... ONCE ONCE XX ; Start 03/20/16 at 23:00; Stop 03/20/16 at 23:01 Diphenhydramine HCl 25 mg 25 mg Q6H PRN PO ITCHING Last administered on 12:17; Admin Dose 25 MG; Start 03/20/16 at 12:00 Levofloxacin/ Dextrose (Levaquin 750 Mg/ D5W 150 ml (Pmx)) 150 ml @ 100 mls/hr Q24H IVPB Last administered on 03/20/16 14:32; Admin Dose 100 MLS/HR; Start at 14:30 RADHA ACOSTA Mar 20, 2016 17:00
[2016-03-20 20:00] VITALS: BP 117/70; RESP 18
[2016-03-21] MEDS: VANCOMYCIN 1.25 GM in SOD CHLORIDE 0.9% 250 ML IVPB SCH ×2 (00:48→08:28)
[2016-03-21] MEDS: ACETAMINOPHEN 325 MG TAB PO PRN (04:59)
[2016-03-21 07:44] VITALS: BP 115/60; RESP 18
[2016-03-21] MEDS: NEOMYC/POLYMYX/HC 10 ML OTIC SUSP LEFT EAR SCH ×2 (08:28→12:20)
[2016-03-21] MEDS: FAMOTIDINE 20 MG INJ IV SCH (08:28)
[2016-03-21] MEDS: ENOXAPARIN 30 MG/0.3 ML SYG SC SCH (08:29)
--- NOTE | 2016-03-21 10:11 | CONS ---
Date/Time of Note Date/Time of Note DATE: 03/21/16 TIME: 10:10 Assessment/Plan Assessment/Plan Chief Complaint/Hosp Course - acute mastoidits - left otitis media - transaminitis - improving Recommendations: - cont. Levaquin for GNR infection - F/u Left ear cultures (prelim growing scant GNR)--called micro--> - Mgmt d/w nursing staff Problems: Consultation Date/Type/Reason Admit Date/Time Mar 18, 2016 at 18:10 Type of Consultation: Infectious Disease Referring Provider: RADHA ACOSTA 24 HR Interval Summary Free Text/Dictation feeling better Exam/Review of Systems Vital Signs Vitals Vital Signs Date Time Temp Pulse Resp B/P Pulse Ox O2 Delivery O2 Flow Rate FiO2 03/21/16 07:44 98.4 63 18 115/60 99 03/19/16 20:00 Room Air Intake and Output 03/20/16 03/20/16 03/21/16 15:00 23:00 07:00 Intake Total 350 ml 585 ml 610 ml Balance 350 ml 585 ml 610 ml Exam Constitutional: alert, oriented, other (less pain on left ear), well developed Psych: nl mood/affect, no complaints Head: atraumatic, normocephalic Eyes: EOMI, PERRL, nl conjunctiva, nl lids, nl sclera Respiratory: clear to auscultation, normal air movement Cardiovascular: nl pulses, regular rate and rhythm Results Result Diagram: 03/20/16 0507 03/20/16 0507 Results 24 hrs Laboratory Tests Test 03/20/16 22:59 Vancomycin Level Trough 9.2 L Medications Medications Current Medications Ondansetron HCl (Zofran Inj) 4 mg Q6H PRN IV NAUSEA AND/OR VOMITING Last administered on 03/18/16 23:37; Admin Dose 4 MG; Start 03/18/16 at 19:00 Acetaminophen (Tylenol Tab) 650 mg Q6H PRN PO PAIN LEVEL 1-3 OR FEVER Last administered on 03/21/16 04:59; Admin Dose 650 MG; Start 03/18/16 at 19:00 Morphine Sulfate (morphine) 2 mg Q4H PRN IV SEVERE PAIN LEVEL 7-10 Last administered on 03/19/16 01:52; Admin Dose 2 MG; Start 03/18/16 at 19:00 Famotidine (Pepcid Iv) 20 mg Q12 IV Last administered on 03/21/16 08:28; Admin Dose 20 MG; Start 03/18/16 at 21:00 Enoxaparin Sodium (Lovenox) 30 mg DAILY SC Last administered on 03/21/16 08:29 ; Admin Dose 30 MG; Start 03/19/16 at 09:00 Morphine Sulfate (morphine) 4 mg Q4H PRN IV PAIN; Start 03/19/16 at 06:30 Neomycin/ Polymyxin/ Hydrocortisone (Cortisporin Otic Susp) 4 drop TID LEFT EAR Last administered on 03/21/16 08:28; Admin Dose 4 DROP; Start 03/19/16 at 09: 00 Ketorolac Tromethamine (Toradol) 30 mg Q6H PRN IV PAIN Last administered on 23:31; Admin Dose 30 MG; Start 03/19/16 at 20:00; Stop 03/22/16 at 19:59 Diphenhydramine HCl 25 mg 25 mg Q6H PRN PO ITCHING Last administered on 12:17; Admin Dose 25 MG; Start 03/20/16 at 12:00 Levofloxacin/ Dextrose 150 ml @ 100 mls/hr Q24H IVPB Last administered on 03/20 14:32; Admin Dose 100 MLS/HR; Start 03/20/16 at 14:30 Vancomycin HCl/ Sodium Chloride (Vancocin/NS) 250 ml @ 83.333 mls/ hr Q8H IVPB Last administered on 03/21/16 08:28; Admin Dose 83.333 MLS/HR; Start at 00:00 Miscellaneous Information (*Rx Drug Level Order Reminder*) VANCOMYCIN TROUGH AT 2300 ONCE ONCE XX ; Start 03/21/16 at 23:00; Stop 03/21/16 at 23:01 ANEESH SCHULTE MD Mar 21, 2016 10:11
[2016-03-21] MEDS: LEVOFLOXACIN 750MG/D5W (PMX) 150 ML IVPB SCH (13:31)
[2016-03-21] MEDS ORDERED: LEVO750T25 PO (16:49)
[2016-03-21] MEDS ORDERED: FAMOTIDINE 20 MG INJ IV SCH (21:00)
[2016-03-21] MEDS ORDERED: FAMOTIDINE 20 MG TAB PO SCH (21:00)
== END 2016-03-21 18:12 | disposition home or self-care (01) | DRG 153 ==
LOC: FTE 13:11 → PP2 18:10
PROVIDERS: ADMIT Internal Medicine; ATTEND Internal Medicine
DX: H70.002 Acute mastoiditis without complications, left ear (principal); H66.92 Otitis media, unspecified, left ear; R74.0 Nonspecific elevation of levels of transaminase and lactic acid dehydrogenase [LDH]
CPT/HCPCS: 70450; 70486; 80048; 80053; 80202; 81003; 85025; 86703; 87040; 87070; 87081; 87400; 96374; 96375; 96376; J1650; J1885; J1956; J2270; J2405; J3370; J7030; J7040; J7050; Q9967